=== PATIENT | female | born 1980 | race Caucasian/White ===

== ENCOUNTER 2021-09-25 10:10 | Outpatient (CLI) | payer OTHER, SELFPAY ==
[2021-09-25 10:48] LABS: Hematocrit 43.4 % (37.0-47.0); Hemoglobin 14.4 g/dL (12.0-15.0)
== END 2021-09-25 10:11 | disposition home or self-care (01) ==
LOC: ANHSURGERY 10:14
PROVIDERS: PCP Emergency Medicine; Visit Provider Obstetrics & Gynecology Gynecology
DX: N81.4 Uterovaginal prolapse, unspecified (principal); Z01.818 Encounter for other preprocedural examination
CPT/HCPCS: 36415; 85014; 85018; 86850; 86900; 86901

== ENCOUNTER 2021-09-30 00:09 | Day surgery (SDC) | payer OTHER, SELFPAY ==
[2021-09-23 09:48] VITALS: BMI 29.8
--- NOTE | 2021-09-23 09:50 | PC.NURSE ---
Report to the Outpatient Waiting Room, entrance under the green pavilion located off [facility], at time __0630_ on date _[id number]_. OR Time: _0830_. - You and your visitor will be asked a series of questions to screen for COVID 19 for your protection. - A mask is required within the hospital. Preoperative COVID Testing Requirements: No COVID Test needed if: (proof is required; if not received patient will have Rapid Test prior to entry) - Patient has received COVID Vaccine at least 14 days prior to procedure date or - Patient has positive COVID test result within last 90 days of surgery date. COVID Test needed if above criteria is not met If not COVID vaccinated a COVID test must be conducted within 72 hours of surgery and patient is asked to isolate self from time of testing until procedure. You will go to the [facility] for your COVID testing. The [facility] is located at the corner of [address] [facility]. You will only be called if COVID results are positive and your surgeon may reschedule your elective surgery date. Patients may have clear liquids (water, carbonated beverages, clear teas, apple juice) until 3 hours prior to surgery with a maximum of 20 ounces. - No food from midnight until time of surgery - Infants may have breast milk until 4 hours before surgery, infant formula 6 hours prior to surgery. - Children will be allowed to drink immediately following surgery. If applicable, please bring a bottle or sippy cup to assist with drinking. Juice, water, soda, and popsicles are readily available. For infants on formula, please bring formula the day of surgery. Pacifiers are allowed. Take the following medications with a SIP of water the morning of surgery: Medications to discontinue per physician Date to take last dose Please no make-up, nail hebrew, hairspray, perfume, deodorant, or body powder the day of surgery. No jewelry (including any body piercings) or valuables the day of surgery, leave them at home. Please take a shower or bath the night before, or the morning of, surgery with an antibacterial soap. Wear comfortable, loose fitting clothing. Children are encouraged to wear pajamas. - Jewelry must be removed prior to entering the operating room. Rings and piercings that are not removed may be cut off. - The hospital will not accept responsibility for valuables. - Please leave all valuables, including medications, at home the day of surgery. If you are going home after surgery, a licensed sales route driver helper must drive you home. - NO public transportation without another adult. - We recommend that an adult stay with you for 24 hours following discharge. - We also recommend that you do not drive, make important decision, drink alcoholic beverages, or take any drugs that were not prescribed by your health care provider for at least 24 hours after your discharge time. For Pediatric surgeries, we recommend two adults accompany the child home (only one inside the building at this time). One visitor will be allowed to accompany the patient into the hospital. Patients visitor will be instructed to remain with patient at all times or leave the building. We will allow the visitor to come back to the postoperative area when patient is ready. Follow any additional instructions given to you from your surgeon. Telephone instructions given to ___Patient and asked if any additional questions and then verbalized understanding. Patient advised to call surgeon office or pre surgery nurse liaison [phone] if any additional questions.
[2021-09-30] VITALS (11 sets, daily range): BP systolic 100–123; BP diastolic 57–80; PULSE 67–87; RESP 11–20; TEMP 36.3–36.9; O2SAT 96–100
--- NOTE | 2021-09-30 06:48 | P.PNAN_ITS ---
Anes - Initial Pre Proc Eval Procedure: Operation Date: 09/30/21 08:30 Proposed Procedures p Total Vaginal Hysterectomy - Patricia Almendarez MD Date/Time: 09/30/21 06:48 Surgeon: Patricia Almendarez MD Pre Op Diagnosis: uterine prolapse Patient Data Age: 41 Gender: F Height: 1.57 m Weight: 74 kg Allergies Allergy/AdvReac Type Severity Reaction Status Date / Time No Known Allergies Allergy Verified 09/30/21 06:56 Home Medications Medication Instructions Recorded Confirmed Type meloxicam 7.5 mg tablet 7.5 mg PO DAILY #30 tablet 08/17/19 09/30/21 Rx hydrocodone-acetaminophen 1 tablet PO Q3H PRN #10 tablet 10/01/21 Rx Patient hx anesthesia problems: none Family hx anesthesia problems: none Results Review: All pre-operative results and documents have been reviewed as part of the pre-operative evaluation. PMFSH Past Medical History Medical History (Updated 10/01/21 @ 08:02 by Patricia Almendarez MD) (normal spontaneous vaginal delivery) x2 Surgical History Surgical History (Updated 09/30/21 @ 09:52 by Patricia Almendarez MD) History of tonsillectomy Status post tonsillectomy Family History Family History Father Cancer Mother Cancer Grandparent Cancer Social History Social History Smoking status: Never smoker Alcohol intake: current Alcohol use details: occasional Living arrangements: with family Additional living arrangements comments: Rojelio oglesby(), Jaciel Oglesby(son) Additional occupation/education comments: [employer] Spiritual care concerns: No Anes - Eval Final PreProcedure Day of Procedure 09/30/21 06:48 Patient weight: overweight Heart: regular rate and rhythm Lungs: clear to auscultation and normal air movement Airway: Mallampati scale class II Neurological: alert and oriented Last oral intake: >/= 8 hours ASA classification: II Emergent: no Anesthetic plan: proceed Anesthesia type and monitoring: general ETT and standard monitoring Results Review: All pre-operative results and documents have been reviewed as part of the pre-operative evaluation. Informed Consent: The patient's anesthetic plan and its attendant risks and benefits were discussed with the patient/family/POA. Questions were solicited and answers provided to the satisfaction of the patient/family/POA.
--- NOTE | 2021-09-30 07:41 | P.HP_ITS ---
History of Present Illness History of Present Illness Consent: Risks, benefits, and alternatives have been discussed and questions answered. Patient agrees to proceed with procedure. Chief complaint: uterine prolapse Narrative: Rosanna Oglesby is a 41 year old female with symptomatic uterine prolapse. Patient complains constant pelvic pressure patient denies GI complaints. Patient reports very occasional genuine stress incontinence. Options were discussed with the patient and she has elected to proceed with definitive treatment with hysterectomy. Route of hysterectomy was reviewed and the plan is to proceed with total vaginal hysterectomy. Risks of infection, bleeding injury to internal organs (bowel, bladder, ureters, ovaries, tubes), DVT, general anesthesia, and future procedures for symptomatic vault prolapse, cystocele, or rectocele were reviewed. Patient voices understanding and agrees to proceed. Review of Systems Musculoskeletal: Musculoskeletal: Reports arthralgias PMFSH Past Medical History Medical History (Updated 09/30/21 @ 07:45 by Patricia Almendarez MD) (normal spontaneous vaginal delivery) x2 Surgical History Surgical History (Updated 09/30/21 @ 07:44 by Patricia Almendarez MD) History of tonsillectomy Status post tonsillectomy Family History Family History Father Cancer Mother Cancer Grandparent Cancer Social History Social History Smoking status: Never smoker Alcohol intake: current Alcohol use details: occasional Living arrangements: with family Additional living arrangements comments: Rojelio oglesby(), Jaciel Oglesby(son) Additional occupation/education comments: [employer] Spiritual care concerns: No Meds Home Medications and Allergies Home Medications Medication Instructions Recorded Confirmed Type meloxicam 7.5 mg tablet 7.5 mg PO DAILY #30 tablet 08/17/19 09/30/21 Rx Allergies Allergy/AdvReac Type Severity Reaction Status Date / Time No Known Allergies Allergy Verified 09/30/21 06:56 Exam Const: General: healthy appearing and alert Orientation/consciousness: patient oriented x3 Resp: Effort & Inspection: normal respiratory effort Auscultation: clear to auscultation bilaterally Cardio: Rate: regular rate Rhythm: regular rhythm GI: GI Palp: Yes Soft to palpation, No Tenderness to palpation present (GI) and No Palpable mass present : External Female Exam: normal external appearance Speculum Exam - Vagina: normal appearance of the vagina, normal vaginal discharge and other (First-degree cystocele; second-degree rectocele) Speculum Exam - Cervix: normal appearance of the cervix Bimanual exam- vagina & uterus: uterine size normal, consistency normal and other (Uterus 2cm above the introitus) Bimanual Exam- Adnexa, other: normal adnexae and No adnexal tenderness Neuro: General: patient oriented x3 Assessment and Plan Assessment and plan (1) Uterine prolapse: Code(s): N81.4 - Uterovaginal prolapse, unspecified Status: Acute Assessment and Plan: Plan is to proceed with total vaginal hysterectomy. Patient does have asymptomatic cystocele and rectocele and the plan is to observe due to her young age.
--- NOTE | 2021-09-30 07:41 | WPDHPUPDATE1 ---
History and Physical Update Update Date/Time: 09/30/21 07:41 History and Physical has been reviewed, including an updated exam of the patient. There are NO changes in the patient's condition. Risks, benefits, and alternatives have been discussed and questions answered. Patient agrees to proceed with procedure.
[2021-09-30] MEDS: LACTATED RINGERS 1,000 ML 30 ML IV CONT ×2 (07:44→09:58)
[2021-09-30] MEDS: KETOROLAC 15 MG/ML VIAL (*BKC) IV PUSH (07:45)
[2021-09-30] MEDS: ACETAMINOPHEN 500 MG TABLET 1000 MG PO (07:45)
[2021-09-30] MEDS: ceFAZolin 2 GM/D5W 50 ML 2 GM/50 ML BAG IVPB (08:49)
--- NOTE | 2021-09-30 09:47 | P.OP_ITS ---
Procedure Note - Detailed Date of Procedure 09/30/21 Pre-op Diagnosis uterine prolapse Post-op Diagnosis Same Procedure Performed Total vaginal hysterectomy Surgeon Patricia Almendarez MD Anesthesia General Findings Uterus 2cm above the introitus at rest. Second-degree rectocele and first- degree cystocele with good apex support. Normal-appearing uterus Description of Procedure The patient was taken to the operating room and placed under anesthesia in the dorsal lithotomy position. She was prepped and draped in the usual sterile fashion. Short weighted speculum was placed posteriorly and a Betty retractor was placed anteriorly. The cervix was grasped on the anterior lip with a tenaculum the vaginal mucosa was injected circumferentially around the os with 1% lidocaine with epinephrine. The scalpel was used to incise the vaginal mucosa around the cervix. The vaginal mucosa is dissected off anteriorly using sharp and blunt dissection. The peritoneum was entered and the Betty retractor replaced. The vaginal mucosa was dissected off posterior using sharp and blunt dissection and the peritoneum entered and the long curved weighted speculum placed. The minimally curved Z clamps are used throughout. The uterosacral and cardinal ligaments are serially clamped, transected, and suture ligated with 0 Vicryl. Each are tagged for future use. The uterine vessels are clamped, transected, and suture ligated with 0 Vicryl. The posterior fundus is grasped with the piercing towel clamps and delivered through the cul-de-sac. The utero- ovarian ligament and round ligament are clamped, transected, and suture ligated with 0 Vicryl. These were tagged. Using a sponge stick all pedicles are inspected and noted to be hemostatic. The tags on the ovaries are cut out. The Betty retractor was removed and replaced in the upper vagina. The long weighted speculum was removed and the short weighted speculum replaced. The peritoneum was grasped anteriorly and posteriorly with a Peon. The peritoneum was closed using 0 Ethibond in a pursestring fashion incorporating the previously tagged uterosacral and cardinal ligaments as well as the anterior and posterior peritoneum grasped by the Peon. The tags were then all cut out. The vaginal mucosa was closed using 0 Vicryl in a running lock stitch. Vaginal packing coated with Premarin cream is placed. Sponge, needle, and instrument counts are correct per the OR staff. The patient is awakened from anesthesia and taken to recovery in stable condition. Estimated Blood Loss 20 Drains Yes (Pineda catheter) Packing Yes (Vaginal packing) Pathology Yes (Uterus) Complications No immediate complications Condition Stable Disposition PACU
--- NOTE | 2021-09-30 09:52 | P.DS_ITS ---
DS: Admitting Diagnosis Discharge Date October 01, 2021 Admitting Diagnosis Uterine prolapse DS: Discharge Diagnosis Discharge Diagnosis (1) Status post vaginal hysterectomy: Code(s): Z90.710 - Acquired absence of both cervix and uterus Status: Acute DS: Summary Hospital Course Reason for hospitalization: Postoperative observation Hospital Course: The patient underwent total vaginal hysterectomy without c omplications. The patient is voiding, ambulating, and tolerating a regular diet upon discharge. Status at Discharge Functional status at discharge: independent ambulation Overall status at discharge: patient is progressing back to baseline Time Spent with Patient Time attestation: Total time spent providing and/or coordinating discharge services: DS: Data Data Completed and Pending Pending studies at discharge: Pending at discharge 09/30/21 09:33 Surgical [PTH] Routine Discharge Plan Discharge Patient Disposition: Home, Self-Care Stand Alone Forms: General Discharge Instructions Discharge Medications: New hydrocodone-acetaminophen 5-325 mg Tablet 1 tablet PO Q3H PRN (Reason: Pain Rated 5 Or Less) Qty: 10 RF: 0 Continued meloxicam [Mobic] 7.5 mg tablet 7.5 mg PO DAILY Qty: 30 RF: 2
[2021-09-30] MEDS: fentaNYL CITRATE INJ (*CRX) 100 MCG/2 ML VIAL 25 MCG IV PUSH ×2 (10:56→11:00)
[2021-09-30] MEDS: HYDROcodone/acetaminophen (*CRX) 5-325 MG TABLET 1 TAB PO ×2 (11:54→14:55)
[2021-09-30] MEDS: SIMETHICONE 80 MG TAB.CHEW (11:55)
[2021-09-30] MEDS: ONDANSETRON INJ 4 MG/2 ML VIAL IV PUSH ×2 (12:59→19:16)
[2021-09-30] MEDS: KETOROLAC 30 MG/ML VIAL (*BKC) IV PUSH (14:54)
[2021-09-30] MEDS: HYDROcodone/acetaminophen (*CRX) 10-325 MG TABLET 1 TAB PO (20:06)
[2021-10-01 03:50] VITALS: BP 107/61; PULSE 86; RESP 16; TEMP 36.9
[2021-10-01 05:24] LABS: Basophils Percent Auto 0.2 % (0.2-1.2); Hematocrit 27.5 % (37.0-47.0); Hemoglobin 9.1 g/dL (12.0-15.0); Immature Granulocyte Absolute 0.05 K/mm3 (0.00-0.031); Immature Granulocyte Percent A 0.4 % (0-0.5); Lymphocytes Absolute Auto 2.82 K/mm3 (0.9-3.2); Mean Corpuscular HGB Conc 33.1 g/dl (32-36); Mean Corpuscular Hemoglobin 31.8 pg (26-34); Mean Corpuscular Volume 96.2 fl (80-100); Mean Platelet Volume 10.7 fl (7.4-10.4); Monocytes Percent Auto 7.4 % (2.6-8.5); Neutrophils Absolute Auto 10.1 K/mm3 (1.3-6.7); Platelet Count Result 324 k/mm3 (150-375); Red Blood Count 2.86 M/mm3 (4.2-5.4); Red Cell Distribution Width 12.7 % (11.5-14.5); White Blood Count 14.1 K/mm3 (4.5-10.0)
--- NOTE | 2021-10-01 07:58 | PM.GYNPNOP ---
DECORATOR MANNEQUIN - A/P Postoperative Procedures: Procedures Operation Date: 09/30/21 08:30 Actual Procedure Side Surgeon p Total Vaginal Hysterectomy Patricia Almendarez MD Postoperative day: 1 Postoperative status: doing well Postoperative plan: discharge (this afternoon) and other (plan H/H at noon to verify stable; suspect lower at start of admit due to heavy cycle since preop H/H) Time Spent With Patient Time: Total time spent is greater than 50% in coordination of care (as documented) at patient's floor/unit and/or counseling patient: Time with patient: less than 15 minutes DECORATOR MANNEQUIN- PN:Subj Post-Op Subjective Date/time seen: 10/01/21 07:58 Interval history: states had heavy cycle with clots since preop H/H drawn Subjective: patient has no complaints, pain is well controlled (no narcotic since last pm) and other (ambulating in room, voided) Exam Narrative: appears well, good color abdomen soft, nt, nd Peripad dry DECORATOR MANNEQUIN - PN: Obj Data Vital Signs Vital Signs: Vital Signs - 24 hr 09/30/21 08:11 09/30/21 09:52 09/30/21 10:05 Temperature 98.0 F 97.7 F Pulse Rate 87 80 67 Respiratory Rate 18 18 13 Blood Pressure 119/80 110/70 113/79 Pulse Oximetry 98 99 99 09/30/21 10:20 09/30/21 10:35 09/30/21 10:50 Temperature Pulse Rate 74 79 67 Respiratory Rate 13 14 12 Blood Pressure 103/80 107/72 108/73 Pulse Oximetry 100 98 100 09/30/21 11:05 09/30/21 11:20 09/30/21 17:50 Temperature 97.4 F L 98.3 F Pulse Rate 86 85 85 Respiratory Rate 11 L 16 16 Blood Pressure 110/74 123/73 100/57 L Pulse Oximetry 96 97 97 09/30/21 19:15 09/30/21 22:15 10/01/21 03:50 Temperature 98.5 F 97.6 F 98.4 F Pulse Rate 76 82 86 Respiratory Rate 18 18 16 Blood Pressure 105/67 123/65 107/61 Pulse Oximetry Intake/Output Intake/Output: Intake & Output 09/28/21 09/29/21 09/30/21 10/01/21 22:59 23:59 23:59 23:59 Intake Total 1550 850 Output Total 1090 2350 Balance 460 -1500 Meds/Results Medications: Active Medications Generic Name Dose Route Start Last Admin Trade Name Brendenq PRN Reason Stop Dose Admin Hydrocodone Bitart/Acetaminophen 1 tab 09/30/21 11:16 09/30/21 14:55 Hydrocodone/Acetaminophen (*Crx) 5-325 Mg Tablet PO 1 tab Q3H PRN Administration Pain Rated 5 or Less Hydrocodone Bitart/Acetaminophen 1 tab 09/30/21 11:16 09/30/21 20:06 Hydrocodone/Acetaminophen (*Crx) 10-325 Mg Tablet PO 1 tab Q3H PRN Administration Pain Rated 6 or Greater Fentanyl Citrate 600 mcg in 30 mls @ 0.5 mls/hr 09/30/21 11:16 Fentanyl 600 Mcg/Ns 30 Ml Rn Relief Charge IV CONT PRN PRN SOIL SCIENCE TEACHER Management Protocol 10 MCG/HR Ibuprofen 600 mg 09/30/21 11:16 Ibuprofen 600 Mg Tablet PO Q6H PRN Cramping Ketorolac Tromethamine 30 mg 09/30/21 11:16 09/30/21 14:54 Ketorolac 30 Mg/Ml Vial (*Bkc) IV PUSH 10/05/21 11:15 30 mg Q6H PRN Administration Pain Rated 4-6 Naloxone HCl 0.1 mg 09/30/21 11:16 Naloxone Hcl 0.4 Mg/Ml Vial IV PUSH Q2M PRN Respiratory rate less than 10 Ondansetron HCl 4 mg 09/30/21 11:16 09/30/21 19:16 Ondansetron Inj 4 Mg/2 Ml Vial IV PUSH 4 mg Q6H PRN Administration Nausea And Vomiting Labs CBC & Chem 7: 10/01/21 03:43 Labs: Laboratory Results - last 24 hr 10/01/21 03:43 WBC 14.1 H RBC 2.86 L Hgb 9.1 L D Hct 27.5 L MCV 96.2 MCH 31.8 MCHC 33.1 RDW 12.7 Plt Count 324 MPV 10.7 H Immature Gran % (Auto) 0.4 Neut % (Auto) 72.0 Lymph % (Auto) 20.0 Milam % (Auto) 7.4 Eos % (Auto) 0.0 Baso % (Auto) 0.2 Lymph # (Auto) 2.82 Milam # (Auto) 1.0 H Eos # (Auto) 0.0 Baso # (Auto) 0.0 Abs Immat Gran (auto) 0.05 H Absolute Neuts (auto) 10.1 H Absolute Nucleated RBC 0.0 Nucleated RBC % 0.0
[2021-10-01 08:00] VITALS: BP 119/71; PULSE 84; RESP 16; TEMP 37; O2SAT 98
--- NOTE | 2021-10-01 10:52 | P.PNAN_ITS ---
Anes - Prog Note Post-Op Date/Time: 10/01/21 10:52 Cardiovascular status: normal Respiratory status: normal Airway patency: baseline Mental status: baseline Post-Op hydration status: normal Vital Signs: Last Vital Signs Temp 37.0 C 10/01/21 08:00 Pulse 84 10/01/21 08:00 Resp 16 10/01/21 08:00 BP 119/71 10/01/21 08:00 Pulse Ox 98 10/01/21 08:00 Pain Score (VAS): 08/29 I/O: Intake & Output 09/30/21 10/01/21 10/01/21 23:59 07:59 15:59 Intake Total 900 850 800 Output Total 1000 2350 Balance -100 -1500 800 Laboratory Tests 10/01/21 03:43 10/01/21 03:43 WBC 14.1 H RBC 2.86 L Hgb 9.1 L D Hct 27.5 L MCV 96.2 MCH 31.8 MCHC 33.1 RDW 12.7 Plt Count 324 MPV 10.7 H Immature Gran % (Auto) 0.4 Neut % (Auto) 72.0 Lymph % (Auto) 20.0 Mckean % (Auto) 7.4 Eos % (Auto) 0.0 Baso % (Auto) 0.2 Lymph # (Auto) 2.82 Mckean # (Auto) 1.0 H Eos # (Auto) 0.0 Baso # (Auto) 0.0 Abs Immat Gran (auto) 0.05 H Absolute Neuts (auto) 10.1 H Absolute Nucleated RBC 0.0 Nucleated RBC % 0.0 Post-procedural complaints: none Patient Feedback: Patient satisfied with anesthetic care.
[2021-10-01 12:18] LABS: Hemoglobin 10.2 g/dL (12.0-15.0)
== END 2021-10-01 13:29 | disposition home or self-care (01) ==
LOC: ANHSURGERY 09:53 → ANHOB2 11:25
PROVIDERS: PCP Emergency Medicine; Visit Provider Obstetrics & Gynecology Gynecology
PROC: (CPT 58260; principal; 2021-09-30 08:30)
DX: N81.2 Incomplete uterovaginal prolapse (principal); T83.32XA Displacement of intrauterine contraceptive device, initial encounter; Y84.8 Other medical procedures as the cause of abnormal reaction of the patient, or of later complication, without mention of misadventure at the time of the procedure; N87.9 Dysplasia of cervix uteri, unspecified; N80.0 Endometriosis of uterus
CPT/HCPCS: 58260; 36415; 85014; 85018; 85025; 86850; 86900; 86901; 88307; 99199; A9270; J0690; J1100; J1170; J1885; J2250; J2405; J2704; J2710; J3010; J7030; J7120

== ENCOUNTER 2022-07-16 08:37 | Outpatient (CLI) | payer OTHER, SELFPAY ==
--- NOTE | ~2022-07-16 | MMUS_ITS ---
EXAMINATION: MM diagnostic fredrick BI w dary, US breast BI complete HISTORY: Upper outer quadrant left breast lump, pain TECHNIQUE: Bilateral full field and spot ML, MLO and CC 3-D tomosynthesis images o were performed and synthetic 2-D images were generated. CAD analysis was submitted and interpreted. High resolution com plete bilateral breast ultrasound including all 4 quadrants and subareolar areas was performed. COMPARISON: 05/31/2018 bilateral screening mammogram BREAST PARENCHYMAL COMPOSITION: The breasts are heterogeneously dense, which may obscure small masses . FINDINGS: MAMMOGRAPHIC FINDINGS: Possible architectural distortion in the outer right breast upper outer left breast. No malignant calcification, skin thickening or retraction is evident. ULTRASOUND: Right breast: No suspicious mass or shadowing, cyst or other significant finding Left breast: Irregular bilobed up to 7.5 x 12 mm mass is noted at 1:00 4 cm from the nipple. The marco ins are not well-circumscribed. No internal vascularity is noted. There is mixed posterior shadowing and posterior enhancement. This finding is indeterminate but suspicious. Ultrasound-guided biopsy is recommended. IMPRESSION: 1. Suspicious approximately 7.5 x 12.0 left breast mass at 1:00 4 cm from nipple 2. Ultrasound-guided biopsy of left breast at 1:00 4 cm from nipple is recommended BI-RADS category 4, suspicious findings. Dr. Giron telephoned the report and left breast ultrasound guided biopsy recommendation on 07/08/2022 1003 hours to extension 225 voicemail. Reviewed, dictated and finalized at location A. MOBILE RADIO TECHNICIAN IMPRESSION: 1. Suspicious approximately 7.5 x 12.0 left breast mass at 1:00 4 cm from nippl e 2. Ultrasound-guided biopsy of left breast at 1:00 4 cm from nipple is recommen ded BI-RADS category 4, suspicious findings. Dr. Giron telephoned the report and left breast ultrasound guided biopsy recomme ndation on 07/08/2022 1003 hours to extension 225 voicemail.
== END 2022-07-16 08:38 ==
PROVIDERS: PCP Emergency Medicine; Visit Provider Nurse Practitioner
DX: N64.4 Mastodynia (principal); N63.20 Unspecified lump in the left breast, unspecified quadrant; R92.8 Other abnormal and inconclusive findings on diagnostic imaging of breast
CPT/HCPCS: 76641; 77062; 77066; G0279

== ENCOUNTER 2022-08-15 09:38 | Outpatient (CLI) | payer OTHER, SELFPAY ==
--- NOTE | ~2022-08-15 | MMUS_ITS ---
US breast biopsy LT w image, MM post biopsy invasive LT EXAMINATION: US GUIDED NEEDLE BIOPSY WITH VACUUM ASSISTANCE DATE: 08/15/2022 11:13 ABLE BODIED SEAMAN INDICATION: Left breast masses seen on recent examination. Ultrasound-guided core biopsy is requeste d to evaluate for malignancy. TECHNIQUE AND FINDINGS: The risks and potential benefits of the procedure were discussed with the patient, and written inform ed consent was obtained. After sterile preparation of the breast, 1% lidocaine was utilized for loca l anesthesia. 1% lidocaine with epinephrine was used for deep anesthesia. Initial attempts at aspiration were performed using an 18-gauge needle without success. A 10G vacuum- assisted biopsy gun needle was advanced through to the outer edge of the region of interest from a dias perior lateral approach utilizing sonographic guidance. A total of 5 tissue core samples were obtain ed through the lesion. An Inrad tissue marker clip was then placed at the biopsy site. Hemostasis wa s achieved. The patient tolerated procedure well and there was no evidence of immediate complication. The patien t was given verbal instructions partly is from the department. Left breast mammograms to document ti ssue marker clip placement. The tissue samples were submitted to surgical pathology for histologic an alysis. IMPRESSION: 1. Successful ultrasound-guided vacuum-assisted biopsy of left breast mass with tissue marker placem ent. Please refer to pathology report for histologic analysis. Reviewed, dictated and finalized at location A. BODIED SEAMAN IMPRESSION: 1. Successful ultrasound-guided vacuum-assisted biopsy of left breast mass wit h tissue marker placement. Please refer to pathology report for histologic anal ysis.
== END 2022-08-15 09:39 | disposition home or self-care (01) ==
PROVIDERS: PCP Emergency Medicine; Visit Provider Surgery
DX: N63.21 Unspecified lump in the left breast, upper outer quadrant (principal)
CPT/HCPCS: 19083; 88305; A4648

== ENCOUNTER 2023-10-14 11:13 | Outpatient (CLI) | payer OTHER, SELFPAY ==
--- NOTE | ~2023-10-14 | MM_ITS ---
EXAMINATION: MM screening fredrick BI w dary HISTORY: Screening mammogram TECHNIQUE: Craniocaudal and mediolateral oblique 3-D tomosynthesis images were obtained and synthetic 2-D images were generated. Bilateral rotated lateral CC views. CAD analysis was submitted and interp reted. COMPARISON: 08/15/2022 left ultrasound guided breast biopsy (post biopsy pathology: Benign fibrocystic changes) 07/16/2022 bilateral diagnostic mammography and complete bilateral breast ultrasound examination 05/18/2020, 05/31/2018 bilateral screening mammogram examinations BREAST PARENCHYMAL COMPOSITION: The breasts are heterogeneously dense, which may obscure small masses . FINDINGS: Biopsy marker on the left; history of prior benign left breast biopsy. There is no evidence of suspicious mass, calcification, or architectural distortion to suggest malignancy in either breas t. There has been no suspicious interval change. IMPRESSION: 1. No mammographic evidence of malignancy. 2. Recommend routine screening mammography in one year. BI-RADS Category 1: Negative Reviewed, dictated and finalized at location A.
== END 2023-10-14 11:14 ==
LOC: MICIMG 11:14
PROVIDERS: PCP Nurse Practitioner; Visit Provider Nurse Practitioner
DX: Z12.31 Encounter for screening mammogram for malignant neoplasm of breast (principal)
CPT/HCPCS: 77063; 77067

== ENCOUNTER 2024-12-24 07:31 | Outpatient (CLI) | payer OTHER, SELFPAY ==
--- NOTE | ~2024-12-24 | MM_ITS ---
EXAMINATION: MM screening fredrick BI w dary HISTORY: Screening TECHNIQUE: Craniocaudal and mediolateral oblique 3-D tomosynthesis images were obtained and synthetic 2-D images were generated. CAD analysis was submitted and interpreted. COMPARISON: Comparison to multiple prior studies sequentially, with oldest reviewed study dated 06/20. BREAST PARENCHYMAL COMPOSITION: Dense: The breasts are heterogeneously dense, which may obscure small masses FINDINGS: There is no evidence of suspicious mass, calcification, or architectural distortion to sugg est malignancy in either breast. There has been no suspicious interval change. IMPRESSION: 1. No mammographic evidence of malignancy. 2. Recommend routine screening mammography in one year. BI-RADS Category 1: Negative Reviewed, dictated and finalized at location B.
== END 2024-12-24 07:32 | disposition home or self-care (01) ==
LOC: MICIMG 07:32
PROVIDERS: PCP Nurse Practitioner; Visit Provider Nurse Practitioner
DX: Z12.31 Encounter for screening mammogram for malignant neoplasm of breast (principal)
CPT/HCPCS: 77063; 77067